=== PATIENT | female | born 1995 | race African-American/Black ===

== ENCOUNTER 2022-12-05 17:55 | Emergency (ER) | payer MEDICAID, OTHER ==
[~2022-12-05] VITALS: Ht 167.6 cm; Wt 89.0 kg
[2022-12-05 18:16] VITALS: O2SAT 98
[2022-12-05] MEDS ORDERED: KETOROLAC 60MG/2ML VIAL IM ONE (18:30)
[2022-12-05] MEDS ORDERED: NAPR-1129 MT (19:28)
[2022-12-05 20:50] VITALS: BP 121/81; PULSE 75; RESP 15; TEMP 98.5
== END 2022-12-05 21:00 | disposition home or self-care (01) ==
LOC: ER 17:55
DX: S99.912A Unspecified injury of left ankle, initial encounter (principal); F12.10 Cannabis abuse, uncomplicated; G89.11 Acute pain due to trauma; V49.49XA Driver injured in collision with other motor vehicles in traffic accident, initial encounter; Y93.89 Activity, other specified; Y92.89 Other specified places as the place of occurrence of the external cause; Y99.8 Other external cause status
CPT/HCPCS: 73560; 73590; 73600; 29515; 96372; 99284; J1885; Z7610 ×2

== ENCOUNTER 2023-10-04 17:17 | Emergency (ER) | payer MEDICAID ==
[~2023-10-04] VITALS: Ht 167.6 cm; Wt 66.0 kg
[~2023-10-04 17:17] MED LIST: NAPR-1129 MT
[2023-10-04 17:21] VITALS: O2SAT 100
[2023-10-04] MEDS: SODIUM CHLORIDE 0.9% 1,320 ML IV ONE (18:20)
[2023-10-04 18:23] LABS: BASOPHILS % 1.1 % (0.0-2.0); EOSINOPHILS % 1.2 % (0.0-5.0); HEMATOCRIT. 36.9 % (36.0-48.0); LYMPHOCYTES % 30.4 % (20.0-50.0); MEAN CORPUSCULAR HEMOGLOBIN 32.4 pg (28.0-32.0); MEAN CORPUSCULAR HGB CONC 35.1 g/dL (31.0-37.0); MEAN CORPUSCULAR VOLUME 92.3 fL (81.0-99.0); MEAN PLATELET VOLUME 9.6 fl (7.4-10.4); MONOCYTES % 11.6 % (2.0-8.0); NEUTROPHILS % 55.7 % (40.0-76.0); PLATELET 257 x1000/uL (130-400); RED CELL DISTRIBUTION WIDTH 12.1 % (11.6-14.6); WHITE BLOOD COUNT 6.8 x1000/uL (4.5-11.0)
[2023-10-04 18:26] LABS: CLARITY URINE CLEAR (CLEAR); COLOR URINE YELLOW (YELLOW); GLUCOSE URINE NEGATIVE (NEGATIVE); KETONES URINE 4+ (NEGATIVE); LEUKOCYTE ESTERASE URINE 1+ (NEGATIVE); NITRITE URINE NEGATIVE (NEGATIVE); OCCULT BLOOD URINE NEGATIVE (NEGATIVE); PROTEIN URINE NEGATIVE (NEGATIVE); SPECIFIC GRAVITY URINE 1.021 (1.005-1.030)
[2023-10-04 18:32] LABS: INR 1.1; PROTHROMBIN TIME 11.9 sec (9.6-11.0)
[2023-10-04 18:38] LABS: HCG SCREEN POSITIVE
[2023-10-04 18:50] LABS: ALANINE AMINOTRANSFERASE 8 IU/L (10-49); ALBUMIN 4.6 g/dL (3.2-4.8); ASPARTATE AMINOTRANSFERASE 16 IU/L (<34); B-HCG QUANTITATIVE 75775 mIU/mL (<3); BILIRUBIN TOTAL 0.6 mg/dL (0.1-1.0); CARBON DIOXIDE 24 mEq/L (21-32); CHLORIDE 105 mEq/L (98-107); CREATININE 0.6 mg/dL (0.6-1.0); GLUCOSE 70 mg/dL (70-105); POTASSIUM 3.2 mEq/L (3.5-5.1); PROTEIN TOTAL 7.9 g/dL (6.0-8.3); SODIUM 137 mEq/L (136-145); TROPONIN I HIGH SENSITIVITY 4 ng/L (3.0-34); UREA NITROGEN BLOOD < 5 mg/dL (9-23)
[2023-10-04 18:56] LABS: BACTERIA URINE NONE SEEN; RBC URINE 0-2 /hpf (0-2); SQUAMOUS EPITHELIAL CELL URINE 2+ /lpf (RARE/1+)
[2023-10-04] MEDS ORDERED: CEPH500C2 MT (22:03)
[2023-10-04] MEDS: ONDANSETRON HCL 4MG/2ML INJ IV NR (22:12)
[2023-10-04] MEDS: RHO(D) IMMUNE GLOBULIN 300 MCG/SYR IM ONE (22:59)
[2023-10-04 23:31] VITALS: BP 121/72; PULSE 82; RESP 16; TEMP 97.9
== END 2023-10-04 23:32 | disposition home or self-care (01) ==
LOC: ER 17:17
DX: O26.891 Other specified pregnancy related conditions, first trimester (principal); D57.1 Sickle-cell disease without crisis; Z3A.01 Less than 8 weeks gestation of pregnancy
CPT/HCPCS: 80053; 81003; 81025; 84703; 84702; 83690; 85025; 85610; 86850; 86900; 86901; 84484; 36415; 76801; 76817; 93005; 96361; 96372; 96374; 99285; 90384; J2405; J7030; Z7610; J2791

== ENCOUNTER 2024-11-19 08:16 | Emergency (ER) | payer MEDICAID ==
[~2024-11-19] VITALS: Ht 177.8 cm; Wt 72.0 kg
[~2024-11-19 08:16] MED LIST changes: +CEPH500C2 MT
[2024-11-19 08:20] VITALS: O2SAT 99
[2024-11-19 08:56] LABS: BASOPHILS % 0.8 % (0.0-2.0); EOSINOPHILS % 0.8 % (0.0-5.0); HEMATOCRIT. 37.5 % (36.0-48.0); HEMOGLOBIN. 12.9 g/dL (12.0-16.0); LYMPHOCYTES % 18.6 % (20.0-50.0); MEAN CORPUSCULAR HEMOGLOBIN 31.4 pg (28.0-32.0); MEAN CORPUSCULAR HGB CONC 34.3 g/dL (31.0-37.0); MEAN CORPUSCULAR VOLUME 91.5 fL (81.0-99.0); MEAN PLATELET VOLUME 8.6 fl (7.4-10.4); NEUTROPHILS % 73.8 % (40.0-76.0); PLATELET 322 x1000/uL (130-400); RED CELL DISTRIBUTION WIDTH 13.1 % (11.6-14.6); WHITE BLOOD COUNT 8.4 x1000/uL (4.5-11.0)
[2024-11-19 09:03] LABS: CHLORIDE 112 mEq/L (98-107); POTASSIUM 3.7 mEq/L (3.5-5.1); SODIUM 143 mEq/L (136-145)
[2024-11-19 09:04] LABS: CALCIUM 9.1 mg/dL (8.7-10.4); CARBON DIOXIDE 26 mEq/L (21-32)
[2024-11-19 09:09] LABS: CREATININE 0.7 mg/dL (0.6-1.0); GLUCOSE 92 mg/dL (70-105); UREA NITROGEN BLOOD 9 mg/dL (9-23)
[2024-11-19 10:11] LABS: CLARITY URINE CLEAR (CLEAR); COLOR URINE YELLOW (YELLOW); GLUCOSE URINE NEGATIVE (NEGATIVE); KETONES URINE NEGATIVE (NEGATIVE); LEUKOCYTE ESTERASE URINE NEGATIVE (NEGATIVE); NITRITE URINE NEGATIVE (NEGATIVE); OCCULT BLOOD URINE NEGATIVE (NEGATIVE); PH URINE 7.5 (4.5-8.0); PROTEIN URINE NEGATIVE (NEGATIVE); SPECIFIC GRAVITY URINE 1.018 (1.005-1.030); UROBILINOGEN URINE 0.2 E.U./dL (0.2-1.0)
[2024-11-19] MEDS ORDERED: ONDA-239 PO (10:20)
[2024-11-19] MEDS ORDERED: DICYCLOMINE 10 MG/5 ML ORAL SYR PO ONE (10:30)
[2024-11-19] MEDS: ONDANSETRON 4MG ODT PO ONE (10:37)
[2024-11-19] MEDS: DICYCLOMINE HCL 10MG CAPSULE PO NR (10:37)
[2024-11-19] MEDS: VISCOUS LIDOCAINE 2% 15 ML UDC PO ONE (10:37)
[2024-11-19] MEDS: MAGNESIUM/ALUMINUM HYDROXIDE/SIMETHICONE 30ML UDC PO ONE (10:37)
[2024-11-19 10:58] VITALS: BP 106/68; PULSE 68; RESP 18; TEMP 36.8; O2SAT 100
== END 2024-11-19 11:00 | disposition home or self-care (01) ==
LOC: ER 08:16
DX: R11.2 Nausea with vomiting, unspecified (principal); R19.7 Diarrhea, unspecified; J02.9 Acute pharyngitis, unspecified; I10 Essential (primary) hypertension; Z79.899 Other long term (current) drug therapy
CPT/HCPCS: 99284; 80048; 81003; 81025; 83690; 85025; 36415; Q0162